=== PATIENT | male | born 1960 | race Two or more races ===

== ENCOUNTER 2022-03-26 21:31 | Inpatient (IN) | payer MEDICARE, MEDICAID ==
[~2022-03-26] VITALS: Ht 175.3 cm; Wt 89.8 kg
[~2022-03-26 21:31] MED LIST: ALBU18; ALBUPOW26 NEB; DILT120C20 OR; FLUT100M7 INH; LISI-275 PO; METF-370; METF-370 PO; PAXIL PO
[2022-03-26 22:53] LABS: Basophils # (auto) 0 10 ^3/uL (0-0.2); Basophils % (auto) 0.7 % (0.0-2.0); Eosinophils # (auto) 0.2 10 ^3/uL (0-0.8); Eosinophils % (auto) 2.3 % (0.0-7.0); Hematocrit 43.6 % (41.0-53.0); Hemoglobin 14.8 g/dL (13.5-17.5); Lymphocytes # (auto) 2.4 10 ^3/uL (0.4-5.4); Lymphocytes % (auto) 34.8 % (10.0-50.0); Mean Corpuscular Hemoglobin 30.5 pg (28.0-32.0); Mean Corpuscular Volume 89.7 fL (80.0-100.0); Monocytes # (auto) 0.7 10 ^3/uL (0-1.3); Monocytes % (auto) 10.6 % (0.0-12.0); Neutrophils # (auto) 3.5 10 ^3/uL (1.6-8.6); Neutrophils % (auto) 51.6 % (37.0-80.0); Nucleated Red Blood Cells % 0.1 %; Red Blood Cells 4.86 10^6/uL (4.5-5.90); Red Cell Distribution Width 13.4 % (11.8-14.3); White Blood Cell 6.8 10^3/uL (4.4-10.8)
[2022-03-26 23:10] LABS: Albumin 3.9 g/dL (3.4-5.0); Potassium 4.2 mmol/L (3.5-5.1)
[2022-03-26 23:13] LABS: BUN/Creatinine Ratio 25.6; Magnesium 2.3 mg/dL (1.6-2.6)
[2022-03-26 23:26] LABS: Bilirubin, Total 0.4 mg/dL (0.2-1.0)
[2022-03-27] VITALS (8 sets, daily range): BP systolic 113–133; BP diastolic 68–77
[2022-03-27] MEDS ORDERED: ASPirin 81 mg TAB PO ONE (04:45)
[2022-03-27] MEDS ORDERED: MORPHINE SULFATE INJ 2 MG/ml SYRG IV PRN (09:00)
[2022-03-27] MEDS ORDERED: NITROGLYCERIN 0.4 MG SL TAB SL PRN (09:00)
[2022-03-27] MEDS ORDERED: HYDROcodone-ACET 5/325MG TAB PO PRN (09:00)
[2022-03-27] MEDS ORDERED: DOCUSATE SOD 100 MG CAP PO PRN (09:00)
[2022-03-27] MEDS ORDERED: ACETAMINOPHEN 325 MG TAB PO PRN (09:00)
[2022-03-27] MEDS ORDERED: ONDANSETRON HCL 4 MG/2 ML VIAL IV PRN (09:00)
[2022-03-27] MEDS ORDERED: ENOXAPARIN SOD 40 MG/0.4 ML SYRINGE SC SCH (10:00)
[2022-03-27] MEDS ORDERED: SODIUM CHLORIDE 0.9% 500 ML IV ONE (11:30)
[2022-03-27] MEDS ORDERED: LIDOCAINE 2%HCL (LOCAL ANESTH.) INJ 10ml MDV ONE (12:39)
[2022-03-27] MEDS ORDERED: IODIXANOL 320MG/ML 100ML BTL IV ONE ×2 (12:39→13:11)
[2022-03-27] MEDS ORDERED: ANGIOMAX 250 MG VIAL IV ONE (12:50)
[2022-03-27] MEDS ORDERED: VERAPAMIL 2.5MG/ML INJ 2ML VIAL IV ONE (12:50)
[2022-03-27] MEDS ORDERED: HEPARIN SODIUM (PORCINE) 5000 UNITS/ML 1ML VIAL ONE (12:50)
[2022-03-27] MEDS ORDERED: fentaNYL CITRATE 100 MCG/2 ML VL ONE (12:50)
[2022-03-27] MEDS ORDERED: MIDAZOLAM HCL 2MG/2ML 2ml VIAL (1mg/ml) ONE (12:51)
[2022-03-27] MEDS ORDERED: SODIUM CHL 0.9% 50 ML ONE (12:51)
[2022-03-27 13:01] LABS: INR 0.93 (0.9-1.15); Partial Thromboplastin Time 28.3 sec (24.6-33.4)
[2022-03-27 13:28] LABS: Urine Bacteria NONE SEEN /hpf (None Seen); Urine Blood Negative /uL (Negative); Urine Specific Gravity 1.007 (1.001-1.035); Urine WBC <1 /hpf (0 - 3)
[2022-03-27] MEDS ORDERED: TICAGRELOR 90 MG TAB ONE (13:32)
[2022-03-27] MEDS ORDERED: DEXTROSE (50%) 50ML SYRG IV PRN (14:00)
[2022-03-27] MEDS: MORPHINE SULFATE INJ 2 MG/ml SYRG IV PRN (14:04)
[2022-03-27] MEDS ORDERED: KETOROLAC TROMETH 30 MG/ML 1ML VIAL IV ONE (15:00)
[2022-03-27] MEDS: ACCU-CHEK COMFORT CURVE STRIP VI SCH ×2 (16:28→21:28)
[2022-03-27] MEDS: InsuLIN REG 1unit/0.01ml Soln (100units/ml) SC SCH ×2 (16:33→21:17)
[2022-03-27] MEDS ORDERED: BUSP5TAB51 PO (16:59)
[2022-03-27] MEDS ORDERED: TRAZ100T3 PO (17:00)
[2022-03-27] MEDS: busPIRone HCL 10 MG TAB PO SCH (17:08)
[2022-03-27] MEDS: CARVEDILOL 3.125 MG TAB PO SCH (21:32)
[2022-03-27] MEDS: TICAGRELOR 90 MG TAB PO SCH (21:32)
[2022-03-27] MEDS ORDERED: traZODone HCL 50 MG TAB PO SCH (22:00)
[2022-03-27] MEDS ORDERED: ATORVASTATIN 20 MG TAB PO SCH (22:00)
[2022-03-28 05:00] VITALS: BP 97/48
[2022-03-28 05:30] LABS: Basophils # (auto) 0 10 ^3/uL (0-0.2); Basophils % (auto) 0.5 % (0.0-2.0); Eosinophils # (auto) 0.1 10 ^3/uL (0-0.8); Eosinophils % (auto) 1.6 % (0.0-7.0); Hematocrit 38.5 % (41.0-53.0); Hemoglobin 13.2 g/dL (13.5-17.5); Lymphocytes # (auto) 2.1 10 ^3/uL (0.4-5.4); Lymphocytes % (auto) 30.9 % (10.0-50.0); Mean Corpuscular Hemoglobin 31.2 pg (28.0-32.0); Mean Corpuscular Hgb Conc. 34.4 g/dL (32.0-36.0); Mean Corpuscular Volume 90.8 fL (80.0-100.0); Monocytes # (auto) 0.7 10 ^3/uL (0-1.3); Neutrophils # (auto) 3.9 10 ^3/uL (1.6-8.6); Nucleated Red Blood Cells % 0.1 %; Red Blood Cells 4.24 10^6/uL (4.5-5.90); Red Cell Distribution Width 13.8 % (11.8-14.3); White Blood Cell 6.9 10^3/uL (4.4-10.8)
[2022-03-28] MEDS: busPIRone HCL 10 MG TAB PO SCH ×2 (05:38→16:05)
[2022-03-28 05:51] LABS: Albumin 2.9 g/dL (3.4-5.0); Calcium 8.2 mg/dL (8.5-10.1); Potassium 4.6 mmol/L (3.5-5.1)
[2022-03-28 05:56] LABS: BUN/Creatinine Ratio 24.4; Bilirubin, Total 0.5 mg/dL (0.2-1.0); Total Protein 6.7 g/dL (6.4-8.2)
[2022-03-28] MEDS: InsuLIN REG 1unit/0.01ml Soln (100units/ml) SC SCH ×3 (06:33→16:34)
[2022-03-28] MEDS: ACCU-CHEK COMFORT CURVE STRIP VI SCH ×3 (06:54→16:05)
[2022-03-28 08:00] VITALS: BP 114/62
[2022-03-28] MEDS: CARVEDILOL 3.125 MG TAB PO SCH ×2 (08:58→09:21)
[2022-03-28] MEDS ORDERED: LISINOPRIL 5 MG TAB PO SCH (10:00)
[2022-03-28] MEDS ORDERED: ASPirin 81 mg TAB PO SCH (10:00)
[2022-03-28] MEDS: TICAGRELOR 90 MG TAB PO SCH (10:56)
[2022-03-28] MEDS: MORPHINE SULFATE INJ 2 MG/ml SYRG IV PRN (11:01)
[2022-03-28 12:00] VITALS: BP 112/66
[2022-03-28] MEDS ORDERED: DOCUSATE SOD 100 MG CAP PO PRN (15:00)
[2022-03-28 16:00] VITALS: BP 123/76
[2022-03-28] MEDS ORDERED: ASPI-325 PO ×2 (17:47→18:23)
[2022-03-28] MEDS ORDERED: ATOR40TA52 PO ×2 (17:47→18:23)
[2022-03-28] MEDS ORDERED: LISI-275 PO ×2 (17:47→18:23)
[2022-03-28] MEDS ORDERED: TICA90TA PO ×2 (17:47→18:23)
[2022-03-28] MEDS ORDERED: CAR3125T PO ×2 (17:47→18:23)
[2022-03-28] MEDS ORDERED: PANT40TA2 PO ×2 (17:49→18:23)
[2022-03-28 18:23] VITALS: BP 123/76
== END 2022-03-28 19:30 | disposition home or self-care (01) | DRG 246 ==
LOC: ER 21:31 → TELE 03-27 08:53 → TELE-EAST 03-27 15:44
PROVIDERS: ADMIT Internal Medicine; ATTEND Internal Medicine
PROC: 4A023N7 Measurement of Cardiac Sampling and Pressure, Left Heart, Percutaneous Approach (ICD-10-PCS; principal; 2022-03-27)
PROC: 027034Z Dilation of Coronary Artery, One Artery with Drug-eluting Intraluminal Device, Percutaneous Approach (ICD-10-PCS; 2022-03-27)
PROC: B211YZZ Fluoroscopy of Multiple Coronary Arteries using Other Contrast (ICD-10-PCS; 2022-03-27)
PROC: B215YZZ Fluoroscopy of Left Heart using Other Contrast (ICD-10-PCS; 2022-03-27)
PROC: 4A033BC Measurement of Arterial Pressure, Coronary, Percutaneous Approach (ICD-10-PCS; 2022-03-27)
PROC: B240ZZ3 Ultrasonography of Single Coronary Artery, Intravascular (ICD-10-PCS; 2022-03-27)
DX: I25.110 Atherosclerotic heart disease of native coronary artery with unstable angina pectoris (principal); I49.01 Ventricular fibrillation; E11.9 Type 2 diabetes mellitus without complications; F17.210 Nicotine dependence, cigarettes, uncomplicated; I10 Essential (primary) hypertension; J45.909 Unspecified asthma, uncomplicated; F32.A Depression, unspecified; Z20.822 Contact with and (suspected) exposure to COVID-19; F41.9 Anxiety disorder, unspecified; R55 Syncope and collapse; Z88.0 Allergy status to penicillin; Z95.5 Presence of coronary angioplasty implant and graft; Z79.84 Long term (current) use of oral hypoglycemic drugs
CPT/HCPCS: 36415; 71045; 80053; 81001; 82962; 83735; 84484; 85025; 85610; 85730; 86850; 86900; 86901; 92928; 92978; 93005; 93458; 93571; 96360; 99152; 99153; C1874; C1887; G0378; J1815; J1885; J2001; J2250; J2405; Q9967

== ENCOUNTER 2022-08-13 06:29 | Emergency (ER) | payer MEDICARE, MEDICAID ==
[~2022-08-13] VITALS: Ht 175.3 cm; Wt 86.3 kg
[~2022-08-13 06:29] MED LIST changes: +ASPI-325 PO; +ATOR40TA52 PO; +BUSP5TAB51 PO; +CAR3125T PO; -DILT120C20 OR; -FLUT100M7 INH; +PANT40TA2 PO; +TICA90TA PO; +TRAZ100T3 PO
[2022-08-13 07:05] LABS: Basophils # (auto) 0 10 ^3/uL (0-0.2); Basophils % (auto) 0.7 % (0.0-2.0); Eosinophils # (auto) 0.1 10 ^3/uL (0-0.8); Eosinophils % (auto) 2.2 % (0.0-7.0); Hemoglobin 14.3 g/dL (13.5-17.5); Lymphocytes # (auto) 2.6 10 ^3/uL (0.4-5.4); Lymphocytes % (auto) 42.4 % (10.0-50.0); Mean Corpuscular Hemoglobin 30.7 pg (28.0-32.0); Mean Corpuscular Hgb Conc. 34.2 g/dL (32.0-36.0); Mean Corpuscular Volume 89.8 fL (80.0-100.0); Monocytes # (auto) 0.6 10 ^3/uL (0-1.3); Monocytes % (auto) 9.5 % (0.0-12.0); Neutrophils # (auto) 2.8 10 ^3/uL (1.6-8.6); Neutrophils % (auto) 45.2 % (37.0-80.0); Nucleated Red Blood Cells % 0.1 %; Red Blood Cells 4.68 10^6/uL (4.5-5.90); Red Cell Distribution Width 13.3 % (11.8-14.3); White Blood Cell 6.1 10^3/uL (4.4-10.8)
[2022-08-13 07:19] LABS: Albumin 3.4 g/dL (3.4-5.0); Calcium 8.5 mg/dL (8.5-10.1)
[2022-08-13 07:23] LABS: BUN/Creatinine Ratio 25.8; Bilirubin, Total 0.3 mg/dL (0.2-1.0)
[2022-08-13 12:24] VITALS: BP 151/89
== END 2022-08-13 12:25 | disposition home or self-care (01) ==
LOC: ER 06:29
DX: R07.89 Other chest pain (principal); E11.65 Type 2 diabetes mellitus with hyperglycemia; I10 Essential (primary) hypertension; F41.9 Anxiety disorder, unspecified; J45.909 Unspecified asthma, uncomplicated; F32.9 Major depressive disorder, single episode, unspecified; E78.5 Hyperlipidemia, unspecified; F17.210 Nicotine dependence, cigarettes, uncomplicated; F10.90 Alcohol use, unspecified, uncomplicated; Z79.899 Other long term (current) drug therapy; Z98.890 Other specified postprocedural states; Z79.84 Long term (current) use of oral hypoglycemic drugs
CPT/HCPCS: 36415; 71045; 80053; 83880; 84484; 85025; 85379; 93005